=== PATIENT | male | born 1975 | race Caucasian/White ===

== ENCOUNTER 2019-12-16 12:46 | Emergency (ER) | payer SELFPAY ==
[2019-12-16] MEDS ORDERED: Lidocaine 2% PF 5 ML VIAL ONE (13:33)
--- NOTE | 2019-12-16 16:35 | RAD ---
RIGHT FIFTH DIGIT: Date: 12-16-2019 FINDINGS: Three views show a fracture of the terminal tuft of the distal phalanx with damage to the nail and ov erlying tissues. The IP joints of the finger appear intact. IMPRESSION: Tuft fracture. POS: HOME
== END 2019-12-16 15:40 | disposition home or self-care (01) ==
LOC: BURERS 12:46
DX: S68.126A Partial traumatic metacarpophalangeal amputation of right little finger, initial encounter (principal); S67.196A Crushing injury of right little finger, initial encounter; F17.210 Nicotine dependence, cigarettes, uncomplicated; K21.9 Gastro-esophageal reflux disease without esophagitis; Z79.899 Other long term (current) drug therapy; W22.8XXA Striking against or struck by other objects, initial encounter
CPT/HCPCS: 11760; 12031; J2001

== ENCOUNTER 2021-08-24 09:31 | Emergency (ER) | payer SELFPAY | END 2021-08-24 10:05 | disposition home or self-care (01) | LOC: BURERS 09:31 | DX: M54.5 Low back pain (principal); B07.9 Viral wart, unspecified; K21.9 Gastro-esophageal reflux disease without esophagitis; F17.210 Nicotine dependence, cigarettes, uncomplicated; X50.9XXA Other and unspecified overexertion or strenuous movements or postures, initial encounter | CPT/HCPCS: 99283 ==